=== PATIENT | female | born 1950 | race Two or more races ===

== ENCOUNTER 2018-03-25 17:25 | Emergency (ER) | payer OTHER ==
[~2018-03-25] VITALS: Ht 154.9 cm; Wt 54.4 kg
[2018-03-25 17:40] VITALS: BP 150/75
[2018-03-25] MEDS ORDERED: HYDROCHLOROTHIA25 MG ORAL (17:43)
[2018-03-25] MEDS ORDERED: TAPAZOLE5 M1 PO (17:43)
[2018-03-25] MEDS ORDERED: LEVOTHYROXINE75 MCG ORAL (17:43)
--- NOTE | 2018-03-25 18:12 | Emergency Room Report ---
History of Present Illness General Chief Complaint: Abdominal Pain Source: Patient Present Illness HPI Mrs. Robles is a 67-year-old female with history of thyroid disease and hypertension presents with 3 days of epigastric pain. Pain is sharp. No radiation. Worse with eating. No change with movement. No history of abdominal surgeries. Denies fever. Denies chest pain. Denies vomiting. Does have nausea. Gradual onset of pain. Allergies: Coded Allergies: No Known Allergies (Unverified , 03/25/18) Patient History Past Medical History: see triage record Past Surgical History: none Social History: Denies: smoking, drug use Reviewed Nursing Documentation: PMH: Agreed; PSxH: Agreed Nursing Documentation-PMH Past Medical History: No History, Except For Hx Hypertension: Yes Review of Systems Constitutional: Denies: fever, malaise Cardiovascular: Denies: chest pain Gastrointestinal: Reports: abdominal pain; Denies: constipation, diarrhea All Other Systems: negative except mentioned in HPI Physical Exam Vital Signs Date Time Temp Pulse Resp B/P (MAP) Pulse Ox O2 Delivery O2 Flow Rate FiO2 03/25/18 17:37 97.7 71 17 150/75 98 Room Air Sp02 EP Interpretation: reviewed, normal General Appearance: no apparent distress, alert, GCS 15, non-toxic Head: normocephalic, atraumatic Eyes: bilateral eye normal inspection ENT: hearing grossly normal, normal pharynx, no angioedema, normal voice Neck: full range of motion, supple/symm/no masses Respiratory: chest non-tender, lungs clear, normal breath sounds, speaking full sentences Cardiovascular #1: regular rate, rhythm, no edema Gastrointestinal: normal bowel sounds, non tender, soft, no mass, no organomegaly, no peritonitis, no bruit, non-distended, no guarding, no rebound Musculoskeletal: gait/station normal, normal range of motion, non-tender Neurologic: alert, oriented x3, responsive, motor strength/tone normal, sensory intact, speech normal Psychiatric: judgement/insight normal, memory normal, mood/affect normal, no suicidal/homicidal ideation Skin: normal color, no rash, warm/dry, well hydrated Lymphatic: no adenopathy Medical Decision Making Diagnostic Impression: Primary Impression: Epigastric abdominal pain ER Course Mrs. Robles has history of gastritis. Presents with epigastric pain today. Pain is worse with eating. She stated that she had diagnosis of gastritis years ago by EGD. CBC chemistry within normal limits. CT abdomen and pelvis without acute intra-abdominal abnormality. Prescribed famotidine. No indication of cholelithiasis. Differential diagnosis includes peptic ulcer disease, irritable bowel syndrome, gastritis. No indication of ACS. Last Vital Signs Date Time Temp Pulse Resp B/P (MAP) Pulse Ox O2 Delivery O2 Flow Rate FiO2 03/25/18 17:37 97.7 71 17 150/75 98 Room Air Status: improved Disposition: HOME, SELF-CARE Dahiana Santana MD Mar 25, 2018 18:12
[2018-03-25] MEDS ORDERED: Morphine Sulfate 4mg/ml Inj (IV/IM USE ONLY) IVP ONE (18:15)
[2018-03-25 18:46] LABS: ANION GAP 10 mmol/L (5-15); BLOOD UREA NITROGEN 17 mg/dL (7-18); CALCIUM 9.5 MG/DL (8.5-10.1); CARBON DIOXIDE 29 MMOL/L (21-32); CHLORIDE 91 MMOL/L (98-107); CREATININE 0.9 MG/DL (0.55-1.30); POTASSIUM 3.5 MMOL/L (3.5-5.1); SODIUM 130 MMOL/L (136-145)
[2018-03-25 18:51] LABS: ALANINE AMINOTRANSFERASE 35 U/L (12-78); ALBUMIN 4.2 G/DL (3.4-5.0); ALBUMIN/GLOBULIN RATIO 1.1 (1.0-2.7); ALKALINE PHOSPHATASE 133 U/L (46-116); ASPARTATE AMINO TRANSFERASE 25 U/L (15-37); BILIRUBIN,TOTAL 0.4 MG/DL (0.2-1.0)
[2018-03-25 18:59] LABS: BASOPHILS % (AUTO) 0.6 % (0.0-2.0); EOSINOPHILS % (AUTO) 0.6 % (0.0-3.0); HEMATOCRIT 37.3 % (37.0-47.0); HEMOGLOBIN 13.5 G/DL (12.0-16.0); LYMPHOCYTES % (AUTO) 15.6 % (20.0-45.0); MEAN CORPUSCULAR VOLUME 84 FL (80-99); MONOCYTES % (AUTO) 4.4 % (1.0-10.0); NEUTROPHILS % (AUTO) 78.8 % (45.0-75.0); PLATELET COUNT 281 K/UL (150-450); RED BLOOD COUNT 4.46 M/UL (4.20-5.40); RED CELL DISTRIBUTION WIDTH 10.7 % (11.6-14.8); WHITE BLOOD COUNT 6.8 K/UL (4.8-10.8)
[2018-03-25 19:25] VITALS: BP 142/61
[2018-03-25] MEDS ORDERED: FAMOTIDINE20 MG ORAL (19:33)
[2018-03-25 19:52] VITALS: BP 142/61
--- NOTE | 2018-03-26 10:57 | Diagnostic Imaging Report ---
Indication: Abdominal pain Technique: Continuous helical transaxial imaging of the abdomen and pelvis was obtained from the lung bases to the pubic symphysis during intravenous contrast administration. Coronal 2-D reformats were also obtained. Study obtained in a Siemens sensation [address] Automatic Exposure Control was utilized. Total Dose length Product (DLP): 482.[address] Dose Index Volume (CTDIvol): 10.35 mGy Comparison: None Findings: Aortoiliac calcifications are present. Hiatal hernia noted. Lung bases are clear. Solid organs appear normal with normal enhancement. No hydronephrosis demonstrated. No free fluid or free air identified. The appendix is normal. No evidence of bowel obstruction. Transitional anatomy noted at the lumbosacral junction. IMPRESSION: No acute findings. Other incidental findings as above. [facility] has communicated the preliminary results to the Emergency Department. Their findings are largely concordant with this report. The CT scanner at [facility] is accredited by the [employer] and the scans are performed using dose optimization techniques as appropriate to a performed exam including Automatic Exposure control.
== END 2018-03-25 19:53 | disposition home or self-care (01) ==
LOC: EMR 18:32
DX: R10.13 Epigastric pain (principal); I10 Essential (primary) hypertension; E07.9 Disorder of thyroid, unspecified; R42 Dizziness and giddiness; R11.10 Vomiting, unspecified; R51 Headache
CPT/HCPCS: 36415; 74177; 80053; 83690; 85025; 96374; 96375; 99284; J2270; J2405; Q9967